=== PATIENT | male | born 1980 | race African-American/Black ===

== ENCOUNTER 2021-03-15 23:43 | Inpatient (IN) | payer OTHER ==
[~2021-03-15] VITALS: Ht 180.3 cm; Wt 195.0 kg
[~2021-03-15 23:43] MED LIST: AMOXICILLIN500 MG PO; DEPO-MEDROL80 MG/ML IM; FIORICET PO; FLEXERIL PO; KEFLEX500 MG OR; LORTAB 10-325 M1 TAB PO; MEDDOSEPAK PO; NAPROSYN500 MG PO; NO MEDS; ULTRAM50 M1 PO; ULTRAM50 MG OR; ZITHROMAX250 MG PO
[2021-03-16 00:27] LABS: IMMATURE GRANULOCYTES 0.2 % (0.0-5.0); MEAN CELL VOLUME 83.4 fL CALC (80.0-100.0); MEAN CORPUSCULAR HGB 25.5 pG CALC (26.0-32.0); MEAN CORPUSCULAR HGB CONC 30.5 g/dL CAL (32.0-36.0); NEUT# 2.02 thou/uL (1.82-7.42); RED BLOOD COUNT 6.4 mill/uL (4.70-6.10)
[2021-03-16 00:47] LABS: ALKALINE PHOSPHATASE 54 u/l (38-126); ANION GAP 13 (6-22 (CALC)); BUN 21 mg/dL (9-20); BUN/CREATININE RATIO 13 (12-20 (CALC)); CARBON DIOXIDE 34 mmol/l (22-30); CHLORIDE 93 mmol/l (95-108); CREATININE 1.6 mg/dL (0.7-1.3); ETHYL ALCOHOL 0 mg/dl (0-30); GFR 48 ML/MIN (>=60 (CALC)); GFR FOR AFR.AMER. 59 ML/MIN (>=60 (CALC)); LIPASE 60 u/l (23-300); POTASSIUM 3.8 mmol/l (3.5-5.1); SGOT/AST 30 u/l (17-59); SODIUM 135 mmol/l (137-146); TOTAL PROTEIN 7.9 g/dL (6.3-8.2)
[2021-03-16 00:48] LABS: BILIRUBIN, TOTAL 0.4 mg/dL (0.0-1.4)
[2021-03-16 01:23] LABS: HEMATOCRIT 53.4 % (39.0-50.0); HEMOGLOBIN 16.3 g/dl (14.0-18.0)
[2021-03-16 01:50] LABS: URINE BILIRUBIN - DIPSTICK NEGATIVE (NEGATIVE); URINE BLOOD DIPSTICK NEGATIVE (NEGATIVE); URINE COLOR YELLOW; URINE GLUCOSE - DIPSTICK NEGATIVE (NEGATIVE); URINE KETONE TRACE mg/dL (NEGATIVE); URINE LEUK ESTERASE NEGATIVE (NEGATIVE); URINE PROTEIN - DIPSTICK NEGATIVE (NEG-TRACE)
[2021-03-16 01:51] LABS: URINE NITRITE - DIPSTICK NEGATIVE (Negative)
--- NOTE | 2021-03-16 02:00 | NUR ---
PHYSICIAN NOTIFIED TO BP
--- NOTE | 2021-03-16 04:55 | NUR ---
RESTING WITH EYES CLOSED. BIPAP IN USE. AGRESS WITH PLAN FOR ADMISSION
[2021-03-16 06:26] VITALS: BP 97/55
--- NOTE | 2021-03-16 07:00 | NUR ---
REPORT RECEIVED FROM ALVINA BARAJAS.
--- NOTE | 2021-03-16 08:00 | NUR ---
PT SLEEPING, STABLE ON MONITOR, BIPAP IN PLACE, NO DISTRESS
--- NOTE | 2021-03-16 08:00 | NUR ---
PT APPEARS TO BE SLEEPING, STABLE ON MONITOR. ACKNOWLEDGES YOU ON VOICE COMMAND. ITEMS WITHIN REACH.
--- NOTE | 2021-03-16 09:40 | NUR ---
PT STILL RESTING, NO DISTRESS, BIPAP IN PLACE. VITALS UPDATED.
[2021-03-16 09:48] LABS: IMMATURE GRANULOCYTES 0.2 % (0.0-5.0); MEAN CORPUSCULAR HGB 25.6 pG CALC (26.0-32.0); MEAN CORPUSCULAR HGB CONC 30.2 g/dL CAL (32.0-36.0); NEUT# 3.5 thou/uL (1.82-7.42); RED BLOOD COUNT 6.2 mill/uL (4.70-6.10); RED CELL DISTRI WIDTH 13.3 % (11.5-15.5)
[2021-03-16 09:49] LABS: HEMATOCRIT 52.7 % (39.0-50.0); HEMOGLOBIN 15.9 g/dl (14.0-18.0)
--- NOTE | 2021-03-16 10:05 | NUR ---
VITALS UPDATED, NO CHANGES, NO CONCERNS VOICED. BED IN LOW POSITION, PERSONAL ITEMS WITHIN REACH.
[2021-03-16 10:24] LABS: ALBUMIN 3.7 g/dL (3.2-5.0); C-REACTIVE PROTEIN 2.3 mg/dL (0-0.9); CREATININE 1.7 mg/dL (0.7-1.3)
[2021-03-16 10:37] LABS: BILIRUBIN, TOTAL 0.3 mg/dL (0.0-1.4); POTASSIUM 5.6 mmol/l (3.5-5.1)
--- NOTE | 2021-03-16 11:22 | NUR ---
PROVIDERS AT BEDSIDE DISCUSSING PLAN OF CARE
--- NOTE | 2021-03-16 11:38 | NUR ---
Reassessment of patient completed. No distress noted. PATIENT ON TRIAL WITH N/C AT 4L CURRENTLY TOLERATING WELL
--- NOTE | 2021-03-16 13:30 | NUR ---
PT SITTING ON SIDE OF BED TALKING ON PHONE, PERSONAL ITEMS WITHIN REACH. STABLE ON MONITOR, 4L/NC IN PLACE, PT TOLERATING WELL.
[2021-03-16 14:00] VITALS: BP 112/58
--- NOTE | 2021-03-16 14:22 | NUR ---
BIPAP STANDBY. PT. ON 4L NC O2 SAT 94%.
--- NOTE | 2021-03-16 15:24 | NUR ---
PT SITTING ON BEDSIDE, TALKING ON PHONE, NO DISTRESS. NO CHANGES. NO CONCERNS VOICED.
--- NOTE | 2021-03-16 17:30 | NUR ---
URINAL EMPTIED, PT RESTING, DENIES ANY AILMENTS.
[2021-03-16 18:30] VITALS: BP 116/61
--- NOTE | 2021-03-16 18:57 | NUR ---
PT PROVIDED DINNER. NO OTHER CONCERNS. NO CHANGES.
[2021-03-16 19:30] VITALS: BP 112/66
--- NOTE | 2021-03-16 19:30 | NUR ---
PT UPDATED REGARDING AWAITING AVAILABLE ROOM. NO COMPLAINTS. NO DISTRESS.
[2021-03-17] VITALS (7 sets, daily range): BP systolic 107–133; BP diastolic 63–86
--- NOTE | 2021-03-17 | NUR ---
[facility] BED PROVIDED FOR PATIENT COMFORT
--- NOTE | 2021-03-17 03:30 | NUR ---
EPISODE OF APNEA. O2 SAT DECREASED TO 76% WITH 4L O2 VIA NC. RT TO BEDSIDE. BIPAP/CPAP USE RESUMED. PT TOLERATING WELL
[2021-03-17 06:42] LABS: HEMATOCRIT 57.2 % (39.0-50.0); HEMOGLOBIN 17.3 g/dl (14.0-18.0); IMMATURE GRANULOCYTES 0.2 % (0.0-5.0); MEAN CELL VOLUME 85.4 fL CALC (80.0-100.0); MEAN CORPUSCULAR HGB 25.8 pG CALC (26.0-32.0); MEAN CORPUSCULAR HGB CONC 30.2 g/dL CAL (32.0-36.0); NEUT# 3.32 thou/uL (1.82-7.42); RED BLOOD COUNT 6.7 mill/uL (4.70-6.10)
--- NOTE | 2021-03-17 06:55 | NUR ---
REPORT RECEIVED FROM ALVINA BARAJAS. PT STILL ON BIPAP FOR NOW, STABLE.
--- NOTE | 2021-03-17 07:24 | NUR ---
BIPAP PLACED STANDBY. PLACED ON 4L NC
--- NOTE | 2021-03-17 09:00 | NUR ---
PT NOW ON 4L/NC, TOLERATING WELL, BREAKFAST CONSUMED. VITALS STABLE. CALL LIGHT WITHIN REACH. BED IN LOW POSITION.
[2021-03-17 09:25] LABS: ALBUMIN 3.6 g/dL (3.2-5.0); ALKALINE PHOSPHATASE 41 u/l (38-126); BILIRUBIN, TOTAL 0.4 mg/dL (0.0-1.4); BUN 23 mg/dL (9-20); BUN/CREATININE RATIO 23 (12-20 (CALC)); CHLORIDE 97 mmol/l (95-108); GFR > 60 ML/MIN (>=60 (CALC)); GFR FOR AFR.AMER. > 60 ML/MIN (>=60 (CALC)); SGOT/AST 32 u/l (17-59); SODIUM 134 mmol/l (137-146)
[2021-03-17 09:26] LABS: CARBON DIOXIDE 25 mmol/l (22-30)
[2021-03-17 09:28] LABS: ANION GAP 17 (6-22 (CALC)); POTASSIUM 4.8 mmol/l (3.5-5.1)
--- NOTE | 2021-03-17 11:15 | NUR ---
PT SITTING ON SIDE OF BED TALKING ON PHONE, NO DISTRESS, STABLE ON MONITOR. PERSONAL ITEMS WITHIN REACH.
--- NOTE | 2021-03-17 13:21 | NUR ---
NO CHANGES. PT ATE LUNCH. NEW IV STARTED WITHOUT DIFFICULTY. PT TOLERATED WELL.
--- NOTE | 2021-03-17 15:30 | NUR ---
IV MEDS COMPLETED. TALKING ON PHONE. NO DISTRESS NOTED. 4L/NC IN PLACE, TOLERATING WELL. NO CONCERNS VOICED.
--- NOTE | 2021-03-17 17:21 | NUR ---
REPORT GIVEN TO ALVINA WILLIAMSON IN ICU.
--- NOTE | 2021-03-17 20:25 | NUR ---
rec'd to icu1 per wc from er. ivf began as ordered. meds given. fall & air/contact precautions initiated. oriented to room.
--- NOTE | 2021-03-17 20:30 | NUR ---
Admission Note Report Given to: Jason WIN LPN Transported by: X Wheelchair Stretcher Transported with: X Nurse Transporter X Patent IV O2 Lift Mechanic Location: X ICU MS2
--- NOTE | 2021-03-17 22:00 | NUR ---
o2 cont per nc. using cell phone. no APPARENT DISTRESS.
[2021-03-18] VITALS (22 sets, daily range): BP systolic 90–140; BP diastolic 55–85
--- NOTE | 2021-03-18 00:30 | NUR ---
bipap on per rt.
--- NOTE | 2021-03-18 02:00 | NUR ---
eyes closed. no distress. school bus monitor shows sinus tach hr 110.
--- NOTE | 2021-03-18 04:00 | NUR ---
bipap cont. no distress.
--- NOTE | 2021-03-18 05:00 | NUR ---
lab here. blood drawn.
[2021-03-18 05:42] LABS: HEMATOCRIT 49.6 % (39.0-50.0); IMMATURE GRANULOCYTES 0.2 % (0.0-5.0); MEAN CELL VOLUME 84.5 fL CALC (80.0-100.0); MEAN CORPUSCULAR HGB 25.6 pG CALC (26.0-32.0); MEAN CORPUSCULAR HGB CONC 30.2 g/dL CAL (32.0-36.0); NEUT# 2.94 thou/uL (1.82-7.42); RED BLOOD COUNT 5.87 mill/uL (4.70-6.10); RED CELL DISTRI WIDTH 13.1 % (11.5-15.5)
[2021-03-18 06:14] LABS: ALBUMIN 3.4 g/dL (3.2-5.0); ALKALINE PHOSPHATASE 45 u/l (38-126); ANION GAP 13 (6-22 (CALC)); BILIRUBIN, TOTAL 0.3 mg/dL (0.0-1.4); BUN 17 mg/dL (9-20); BUN/CREATININE RATIO 17 (12-20 (CALC)); C-REACTIVE PROTEIN 4.9 mg/dL (0-0.9); CARBON DIOXIDE 28 mmol/l (22-30); CHLORIDE 95 mmol/l (95-108); GFR > 60 ML/MIN (>=60 (CALC)); GFR FOR AFR.AMER. > 60 ML/MIN (>=60 (CALC)); POTASSIUM 4.3 mmol/l (3.5-5.1); SGOT/AST 27 u/l (17-59); SODIUM 132 mmol/l (137-146); TOTAL PROTEIN 6.6 g/dL (6.3-8.2)
--- NOTE | 2021-03-18 07:15 | NUR ---
REPORT RECEIVED FROM ROMMEL RUIZ.
--- NOTE | 2021-03-18 07:50 | NUR ---
PT RESTIMG IN SEMI FOWLERS POSITION,A&O X3;VS OBTAINED AND ASSESSMENT COMPLETED;PT DENIES ANY CURRENT PAIN OR DISCOMFORTS,PAIN SCALE AND REPORTING EDUCATED;RESPIRATIONS SHALLOW ON BIPAP, CONVERTED TO 4L HF NC AT THIS TIME, DIMINISHED LUNG SOUNDS NOTED WITH NON-PRODUCTIVE COUGH;ABDOMEN DISTENDED/SOFT ON PALPATION AND ACTIVE IN ALL 4 QUADRANTS;WEAK PEDAL PULSES;SKIN INTACT;CARDIAC MONITORING IN PLACE;#22G TO LAC FLUSHED AND PATENT,SITE APPEARS HEALTHY;ACCUCHECK 125, NO COVERAGE NEEDED;PT ASSISTED TO RECLINER WITH ONE PERSON ASSIST;PT REMAINS IN AIR/CONTACT PRECAUTIONS DUE TO COVID19 DX;PT DENIES ANY ADDITIONAL NEEDS AND IS ENCOURAGED TO CALL FOR ASSISTANCE IF NEEDED;FALL PRECAUTIONS IN PLACE WITH CALL LIGHT IN REACH;WILL CONTINUE TO MONITOR
--- NOTE | 2021-03-18 09:10 | NUR ---
AT BEDSIDE DISCUSSING POC WITH PT.
--- NOTE | 2021-03-18 10:40 | NUR ---
PT RESTING IN RECLINER;RESPIRATIONS EVEN AND UNLABORED ON O2 @ 4L HF NC;PT DENIES ANY CURRENT PAIN OR NEEDS;CARDIAC MONITORING IN PLACE;IV SITE PATENT INFUSING ABX WITH EASE PER ORDER;PT DENIES ANY ADDITIONAL NEEDS AND IS ENCOURAGED TO CALL FOR ASSISTANCE IF NEEDED;CALL LIGHT IN REACH;WILL CONTINUE TO MONITOR
--- NOTE | 2021-03-18 11:30 | NUR ---
PT REMAINS OOB RESTING IN RECLINER;RESPIRATIONS EVEN AND UNLABORED ON O2 @ 4L HF NC;PT DENIES ANY CURRENT PAIN OR NEEDS;CARDIAC MONITORING IN PLACE;IV SITE PATENT;ACCUCHECK 144;PT ENCOURAGED TO CALL FOR ASSISTANCE IF NEEDED;CALL LIGHT IN REACH;WILL CONTINUE TO MONITOR
--- NOTE | 2021-03-18 13:25 | NUR ---
PT RE-POSITIONED INTO BED PER REQUEST. BIPAP REPLACED AT THIS TIME BECAUSE PT REPORTS HE IS "GOING TO TAKE A NAP";WILL CONTINUE TO MONITOR
--- NOTE | 2021-03-18 15:20 | NUR ---
PT RESTING IN SEMI FOWLERS POSITION REQUESTING TO BE TAKEN OFF BIPAP, O2 REPLACED AT 4L HF NC;PT DENIES ANY CURRENT PAIN OR NEEDS;CARDIAC MONITORING IN PLACE;IV SITE PATENT INFUSING NS @ 20ML/HR PER ORDER;PT DENIES ANY ADDITIONAL NEEDS AND IS ENCOURAGED TO CALL FOR ASSISTANCE IF NEEDED;CALL LIGHT IN REACH;WILL CONTINUE TO MONITOR
--- NOTE | 2021-03-18 15:29 | NUR ---
no changes at this time
--- NOTE | 2021-03-18 18:10 | NUR ---
PT OOB RESTING IN RECLINER;RESPIRATIONS EVEN AND UNLABORED ON O2 @ 4L HF NC;PT DENIES ANY CURRENT PAIN OR NEEDS;CARDIAC MONITORING IN PLACE;IV SITE PATENT;PT ENCOURAGED TO CALL FOR ASSISTANCE IF NEEDED;CALL LIGHT IN REACH;WILL CONTINUE TO MONITOR
--- NOTE | 2021-03-18 19:30 | NUR ---
awake. sitting in bedside chair using cell phone. denies resp diff. o2 cont per nc. potline monitor shows sinus rhythm hr 97. #22 lac saline lock. po fluids taken well. voids per urinal. fall & air/contact precautions cont.
--- NOTE | 2021-03-18 22:00 | NUR ---
remains in bedside chair. o2 cont. no resp diff.
--- NOTE | 2021-03-18 22:30 | NUR ---
in bed per self.
[2021-03-19] VITALS (8 sets, daily range): BP systolic 91–135; BP diastolic 47–75
--- NOTE | 2021-03-19 00:01 | NUR ---
rt notified of need for bipap.
--- NOTE | 2021-03-19 02:00 | NUR ---
resting quietly. bipap cont. ethylene plant operator shows sinus rhythm hr 94.
--- NOTE | 2021-03-19 04:00 | NUR ---
eyes closed. no distress. bipap conts.
--- NOTE | 2021-03-19 05:15 | NUR ---
lab here. blood drawn.
--- NOTE | 2021-03-19 05:30 | NUR ---
lab here. unable to drawn
[2021-03-19 06:25] LABS: HEMATOCRIT 52.1 % (39.0-50.0); HEMOGLOBIN 15.4 g/dl (14.0-18.0); IMMATURE GRANULOCYTES 0.2 % (0.0-5.0); MEAN CELL VOLUME 85.7 fL CALC (80.0-100.0); MEAN CORPUSCULAR HGB 25.3 pG CALC (26.0-32.0); MEAN CORPUSCULAR HGB CONC 29.6 g/dL CAL (32.0-36.0); NEUT# 2.39 thou/uL (1.82-7.42); RED BLOOD COUNT 6.08 mill/uL (4.70-6.10); RED CELL DISTRI WIDTH 13.1 % (11.5-15.5)
[2021-03-19 06:49] LABS: ALBUMIN 3.6 g/dL (3.2-5.0); ALKALINE PHOSPHATASE 44 u/l (38-126); ANION GAP 13 (6-22 (CALC)); BILIRUBIN, TOTAL 0.4 mg/dL (0.0-1.4); BUN 14 mg/dL (9-20); BUN/CREATININE RATIO 15 (12-20 (CALC)); C-REACTIVE PROTEIN 5.7 mg/dL (0-0.9); CARBON DIOXIDE 31 mmol/l (22-30); CHLORIDE 94 mmol/l (95-108); CREATININE 0.9 mg/dL (0.7-1.3); GFR > 60 ML/MIN (>=60 (CALC)); GFR FOR AFR.AMER. > 60 ML/MIN (>=60 (CALC)); POTASSIUM 4.7 mmol/l (3.5-5.1); SGOT/AST 30 u/l (17-59); SODIUM 133 mmol/l (137-146); TOTAL PROTEIN 6.9 g/dL (6.3-8.2)
--- NOTE | 2021-03-19 08:00 | NUR ---
PATIENT LAYIING IN BED AT THIS TIME WITH BI-PAP ON. PATIENTS SPO02 IS 96% AT THIS TIME. PATIENT DENEIS ANY PAIN AND OR NEEDS CURRENTLY. PATIENT IS ON MONITOR AND HR AT THIS TIME IS 128. PATIENT IS REPOSTIONING SELF AT THIS TIME. GYPSUM ROOFER DONE SEE INTERVENTIONS. LUNG FIELD ARE DIMINISHED THROUGHOUT AND BREATH SOUNDS ARE CLEAR. SIDERAILS ARE UP CALL LIGHT IS WITHIN REACH.
--- NOTE | 2021-03-19 09:47 | NUR ---
pt c nad. vss. poss d/c today.
--- NOTE | 2021-03-19 10:10 | NUR ---
PATIENT LAYING IN BED AT THIS TIME. 02 TURNED OFF FOR WALK TEST AND SPO2 IMMEDIATELY DROPPED TO 87% O2 RETURNED BACK ON AT 4L AT THIS TIME AND SPO2 WENT TO 95%. PATIENT REQUESTING TO BE PLACED BACK ON BI-PAP AT THIS TIME SO HE COULD REST. SIDERAILS ARE UP CALL LIGHT IS WITHIN REACH.
--- NOTE | 2021-03-19 12:01 | NUR ---
PATIENT LAYING IN BED AT THIS TIME WITH BI-PAP ON AT THIS SPO2 IS 100% AT THIS TIME. PATIENT MEDICATED AT THIS TIME WITH GUAIFENESIN FOR COUGH AT THIS TIME. TELE MONITOR ON AND HR IS 107. SIDERAILS ARE UP CALL LIGHT WITHIN REACH.
[2021-03-19] MEDS ORDERED: ZITHROMAX500 MG PO (12:15)
[2021-03-19] MEDS ORDERED: DEXAMETHASON6 MG PO (12:17)
[2021-03-19] MEDS ORDERED: TESSALON PERLE100 MG PO (12:18)
--- NOTE | 2021-03-19 12:59 | NUR ---
PT ON NASAL CANNULA, TALKING ON PHONE. NAD. VSS. CRIMINAL INVESTIGATOR CUSTOMS TO MONITOR.
--- NOTE | 2021-03-19 12:59 | NUR ---
PATIENT D/C TO HOME AT THIS TIME. PATIENT VERBALIZES UNDERSTANDING OF D/C ORDERS. PATIENT EDUCATED ON USE OF HOME OXYGEN AND PATIENT VERBALIZES AND DEMONSTRATED UNDERSTANDING OF USE. IV SITE D/C'D AND TIP INTACT.
--- NOTE | 2021-03-19 13:25 | NUR ---
Discharge instructions given. Patient verbalizes understanding of same. Discharged in stable condition via Wheelchair to Home with *Other. All belongings sent with pt. PATIENT D/C WITH HOME OXYGEN AT 4L PATIENT GIVEN INSTRUCTIONS AND EDUCATION ON THE USE OF HOME OXYGEN PATIENT VERBALIZES UNDERSTANDING.
== END 2021-03-19 13:25 | disposition home or self-care (01) | DRG 177 ==
LOC: ED 23:43 → ED-I 03-16 03:10 → ED 03-16 03:29 → ED-I 03-16 03:30 → ICU 03-17 16:20
PROVIDERS: Nurse Practitioner; ADMIT Hospitalist; ATTEND Hospitalist
PROC: XW033E5 Introduction of Remdesivir Anti-infective into Peripheral Vein, Percutaneous Approach, New Technology Group 5 (ICD-10-PCS; principal; 2021-03-16)
PROC: 5A09357 Assistance with Respiratory Ventilation, Less than 24 Consecutive Hours, Continuous Positive Airway Pressure (ICD-10-PCS; 2021-03-16)
DX: U07.1 COVID-19 (principal); J12.82 Pneumonia due to coronavirus disease 2019; J96.92 Respiratory failure, unspecified with hypercapnia; J96.91 Respiratory failure, unspecified with hypoxia; Z68.44 Body mass index [BMI] 60.0-69.9, adult; N17.9 Acute kidney failure, unspecified; I12.9 Hypertensive chronic kidney disease with stage 1 through stage 4 chronic kidney disease, or unspecified chronic kidney disease; N18.9 Chronic kidney disease, unspecified; E66.01 Morbid (severe) obesity due to excess calories; G47.30 Sleep apnea, unspecified
CPT/HCPCS: J1650; Q9967

== ENCOUNTER 2021-10-24 01:46 | Observation (INO) | payer SELFPAY ==
[~2021-10-24] VITALS: Ht 180.3 cm; Wt 195.0 kg
[~2021-10-24 01:46] MED LIST changes: +DEXAMETHASON6 MG PO; +TESSALON PERLE100 MG PO; +ZITHROMAX500 MG PO
[2021-10-24] MEDS ORDERED: LISINOP/HCTZ1 TA2 PO (02:25)
[2021-10-24 03:47] LABS: HEMATOCRIT 50.4 % (39.0-50.0); HEMOGLOBIN 15.9 g/dl (14.0-18.0); IMMATURE GRANULOCYTES 0.2 % (0.0-5.0); MEAN CELL VOLUME 84.8 fL CALC (80.0-100.0); MEAN CORPUSCULAR HGB 26.8 pG CALC (26.0-32.0); MEAN CORPUSCULAR HGB CONC 31.5 g/dL CAL (32.0-36.0); NEUT# 5.02 thou/uL (1.82-7.42); RED BLOOD COUNT 5.94 mill/uL (4.70-6.10); RED CELL DISTRI WIDTH 11.5 % (11.5-15.5)
[2021-10-24 04:01] LABS: ALBUMIN 4.3 g/dL (3.2-5.0); BUN 31 mg/dL (9-20); CARBON DIOXIDE 28 mmol/l (22-30); CHLORIDE 89 mmol/l (95-108); SGOT/AST 23 u/l (17-59); SODIUM 128 mmol/l (137-146)
[2021-10-24 04:06] LABS: ALKALINE PHOSPHATASE 89 u/l (38-126); ANION GAP 17 (6-22 (CALC)); BILIRUBIN, TOTAL 1.4 mg/dL (0.0-1.4); BUN/CREATININE RATIO 15 (12-20 (CALC)); CREATININE 2.1 mg/dL (0.7-1.3); GFR 35 ML/MIN (>=60 (CALC)); GFR FOR AFR.AMER. 43 ML/MIN (>=60 (CALC)); POTASSIUM 5.6 mmol/l (3.5-5.1); TOTAL PROTEIN 8.5 g/dL (6.3-8.2)
[2021-10-24 04:15] LABS: MYOGLOBIN 34 ng/mL (0 - 121)
[2021-10-24 05:34] LABS: URINE BILIRUBIN - DIPSTICK NEGATIVE (NEGATIVE); URINE COLOR YELLOW; URINE GLUCOSE - DIPSTICK >=1000 mg/dL (NEGATIVE); URINE KETONE NEGATIVE (NEGATIVE); URINE LEUK ESTERASE NEGATIVE (NEGATIVE); URINE PH 5.5 (4.5-8.0); URINE PROTEIN - DIPSTICK NEGATIVE (NEG-TRACE); URINE SPECIFIC GRAVITY <=1.005; URINE UROBILINOGEN - DIPSTICK 0.2 E.U./dL (0.2)
[2021-10-24 05:37] LABS: URINE BLOOD DIPSTICK NEGATIVE (NEGATIVE); URINE NITRITE - DIPSTICK NEGATIVE (Negative)
[2021-10-24 09:31] VITALS: BP 120/71
[2021-10-24 09:49] LABS: CHOLESTEROL HDL RATIO 5.3 (<4.4 (CALC))
[2021-10-24 15:31] VITALS: BP 103/65
[2021-10-24 18:49] VITALS: BP 95/52
[2021-10-24 18:51] VITALS: BP 113/68
[2021-10-25 03:48] VITALS: BP 117/76
[2021-10-25 05:46] LABS: HEMATOCRIT 45.5 % (39.0-50.0); HEMOGLOBIN 14.3 g/dl (14.0-18.0); IMMATURE GRANULOCYTES 0.3 % (0.0-5.0); MEAN CELL VOLUME 86.3 fL CALC (80.0-100.0); MEAN CORPUSCULAR HGB 27.1 pG CALC (26.0-32.0); MEAN CORPUSCULAR HGB CONC 31.4 g/dL CAL (32.0-36.0); NEUT# 4.22 thou/uL (1.82-7.42); RED BLOOD COUNT 5.27 mill/uL (4.70-6.10); RED CELL DISTRI WIDTH 11.7 % (11.5-15.5)
[2021-10-25 06:02] LABS: BILIRUBIN, TOTAL 0.9 mg/dL (0.0-1.4); CREATININE 1.7 mg/dL (0.7-1.3); MAGNESIUM 1.7 mg/dL (1.6-2.3); POTASSIUM 4.5 mmol/l (3.5-5.1)
[2021-10-25 06:08] LABS: ALBUMIN 3.3 g/dL (3.2-5.0); TOTAL PROTEIN 6.4 g/dL (6.3-8.2)
[2021-10-25 07:33] VITALS: BP 147/81
[2021-10-25 07:39] VITALS: BP 147/81
[2021-10-25] MEDS ORDERED: NOVOLIN 70/30 SC (12:05)
== END 2021-10-25 13:10 | disposition home or self-care (01) | DRG 638 ==
LOC: ED 01:46 → ED-I 06:10 → ED 06:32 → MS2 06:33
PROVIDERS: Family Medicine; Nurse Practitioner; ADMIT Internal Medicine; ATTEND Internal Medicine
DX: E11.65 Type 2 diabetes mellitus with hyperglycemia (principal); Z68.43 Body mass index [BMI] 50.0-59.9, adult; I10 Essential (primary) hypertension; E66.9 Obesity, unspecified; Z20.822 Contact with and (suspected) exposure to COVID-19
CPT/HCPCS: G0378; J1650

== ENCOUNTER 2022-07-10 16:48 | Emergency (ER) | payer OTHER ==
[2022-07-10] VITALS (9 sets, daily range): BP systolic 98–139; BP diastolic 60–87
[~2022-07-10] VITALS: Ht 180.3 cm; Wt 176.9 kg
[~2022-07-10 16:48] MED LIST changes: +LISINOP/HCTZ1 TA2 PO; +NOVOLIN 70/30 SC
[2022-07-10 17:49] LABS: BASO% 0.4 % (0-3); EOS% 1.1 % (0-8); HEMATOCRIT 47.7 % (39.0-50.0); HEMOGLOBIN 15.1 g/dl (14.0-18.0); IMMATURE GRANULOCYTES 1.1 % (0.0-5.0); LYMPH% 24.4 % (15-41); MEAN CORPUSCULAR HGB 26.6 pG CALC (26.0-32.0); MEAN CORPUSCULAR HGB CONC 31.7 g/dL CAL (32.0-36.0); MONO% 7.9 % (2-13); NEUT# 9.77 thou/uL (1.82-7.42); NEUT% 65.1 % (42-76); RED BLOOD COUNT 5.68 mill/uL (4.70-6.10); RED CELL DISTRI WIDTH 13.4 % (11.5-15.5)
[2022-07-10 18:00] LABS: ALKALINE PHOSPHATASE 74 u/l (38-126); BUN 19 mg/dL (9-20); BUN/CREATININE RATIO 18 (12-20 (CALC)); CARBON DIOXIDE 30 mmol/l (22-30); CHLORIDE 104 mmol/l (95-108); CREATININE 1.1 mg/dL (0.7-1.3); GFR FOR AFR.AMER. > 60 ML/MIN (>=60 (CALC)); GFR OTHER RACES > 60 ML/MIN (>=60 (CALC)); POTASSIUM 4.2 mmol/l (3.5-5.1)
[2022-07-10 18:13] LABS: ALBUMIN 4.1 g/dL (3.2-5.0); ANION GAP 10 (6-22 (CALC)); BILIRUBIN, TOTAL 0.2 mg/dL (0.0-1.4); SGOT/AST 55 u/l (17-59); SODIUM 140 mmol/l (137-146); TOTAL PROTEIN 8.1 g/dL (6.3-8.2)
[2022-07-10] MEDS ORDERED: CYCLOBENZAPRINE10 MG PO (19:42)
[2022-07-10] MEDS ORDERED: HYDROCO/APAP1 TA9 PO (19:42)
[2022-07-10] MEDS ORDERED: NAPROXEN500 MG PO (19:42)
== END 2022-07-10 20:37 | disposition home or self-care (01) | DRG 605 ==
LOC: ED 16:48
PROVIDERS: Nurse Practitioner
DX: S00.81XA Abrasion of other part of head, initial encounter (principal); R55 Syncope and collapse; M54.2 Cervicalgia; R51.9 Headache, unspecified; V49.40XA Driver injured in collision with unspecified motor vehicles in traffic accident, initial encounter
CPT/HCPCS: Q9967

== ENCOUNTER 2022-09-24 13:56 | Emergency (ER) | payer SELFPAY ==
[~2022-09-24] VITALS: Ht 180.3 cm; Wt 187.3 kg
[~2022-09-24 13:56] MED LIST changes: +CYCLOBENZAPRINE10 MG PO; +HYDROCO/APAP1 TA9 PO; +NAPROXEN500 MG PO
[2022-09-24 14:05] VITALS: BP 136/93
[2022-09-24 14:35] LABS: HEMATOCRIT 50.3 % (39.0-50.0); HEMOGLOBIN 15.6 g/dl (14.0-18.0); IMMATURE GRANULOCYTES 0.3 % (0.0-5.0); LYMPH% 38.6 % (15-41); MEAN CELL VOLUME 81.8 fL CALC (80.0-100.0); MEAN CORPUSCULAR HGB 25.4 pG CALC (26.0-32.0); MONO% 8.2 % (2-13); NEUT# 3.98 thou/uL (1.82-7.42); NEUT% 49.9 % (42-76); RED BLOOD COUNT 6.15 mill/uL (4.70-6.10); RED CELL DISTRI WIDTH 13.2 % (11.5-15.5)
[2022-09-24 14:38] LABS: ALKALINE PHOSPHATASE 58 u/l (38-126); ANION GAP 13 (6-22 (CALC)); BUN 16 mg/dL (9-20); BUN/CREATININE RATIO 18 (12-20 (CALC)); CARBON DIOXIDE 26 mmol/l (22-30); CHLORIDE 100 mmol/l (95-108); CREATININE 0.9 mg/dL (0.7-1.3); GFR FOR AFR.AMER. > 60 ML/MIN (>=60 (CALC)); GFR OTHER RACES > 60 ML/MIN (>=60 (CALC)); POTASSIUM 4.6 mmol/l (3.5-5.1); SGOT/AST 31 u/l (17-59); SODIUM 134 mmol/l (137-146); TOTAL PROTEIN 8.1 g/dL (6.3-8.2)
[2022-09-24 15:01] VITALS: BP 119/79
[2022-09-24 16:01] VITALS: BP 118/76
[2022-09-24 17:01] VITALS: BP 117/74
[2022-09-24 18:00] VITALS: BP 123/85
[2022-09-24 18:08] VITALS: BP 123/85
== END 2022-09-24 18:15 | disposition home or self-care (01) | DRG 313 ==
LOC: ED 13:56
PROVIDERS: Family Medicine
DX: R07.9 Chest pain, unspecified (principal); I10 Essential (primary) hypertension